=== PATIENT | female | born 1950 | race Caucasian/White ===

== ENCOUNTER 2017-08-13 08:10 | Outpatient (CLI) | payer MEDICARE | END 2017-08-13 08:11 | disposition home or self-care (01) | LOC: BICMAMMO 08:10 | PROVIDERS: ATTEND Family Medicine | DX: Z12.31 Encounter for screening mammogram for malignant neoplasm of breast (principal); Z78.0 Asymptomatic menopausal state; Z00.00 Encounter for general adult medical examination without abnormal findings; M85.859 Other specified disorders of bone density and structure, unspecified thigh; N63.10 Unspecified lump in the right breast, unspecified quadrant | CPT/HCPCS: 77063; 77067; 77080 ==

== ENCOUNTER 2019-05-02 09:11 | Outpatient (CLI) | payer MEDICARE ==
--- NOTE | 2019-05-02 11:01 | MMO ---
Bilateral MAMMO Bilat Screen DDI+DAT. CLINICAL HISTORY: Patient is 69 years old and is seen for screening. The patient has no family history of breast cancer. The patient has no personal history of cancer. The patient has a history of bilateral Implants at age 23 - benign. VIEWS: The views performed were: bilateral craniocaudal with tomosynthesis and bilateral mediolateral oblique with tomosynthesis. FILMS COMPARED: The present examination has been compared to prior imaging studies performed at [facility] on 08/13/2017, and at [facility] on 01/02/2011, 01/08/2012 and 07/07/2014. This study has been interpreted with the assistance of computer-aided detection. MAMMOGRAM FINDINGS: The breasts are heterogeneously dense, which could obscure a lesion on mammography. There are stable calcified implants seen in both breasts. Innumerable stable nodular densities are present throughout both breasts. There are no suspicious masses, suspicious calcifications, or new areas of architectural distortion. IMPRESSION: THERE IS NO MAMMOGRAPHIC EVIDENCE OF MALIGNANCY. A ROUTINE FOLLOW-UP MAMMOGRAM IN 1 YEAR IS RECOMMENDED. THE RESULTS OF THIS EXAM WERE SENT TO THE PATIENT. ACR BI-RADS Category 2 - Benign finding MAMMOGRAPHY NOTE: 1. A negative mammogram report should not delay a biopsy if a dominant of clinically suspicious mass is present. 2. Approximately 10% to 15% of breast cancers are not detected by mammography. 3. Adenosis and dense breasts may obscure an underlying neoplasm. Reported by: TURNER TERRELL MD Electonically Signed: [id number]
== END 2019-05-02 09:12 | disposition home or self-care (01) ==
LOC: BICMAMMO 09:11
PROVIDERS: ATTEND Family Medicine
DX: Z12.31 Encounter for screening mammogram for malignant neoplasm of breast (principal); Z98.82 Breast implant status
CPT/HCPCS: 77063; 77067

== ENCOUNTER 2019-11-04 07:59 | Outpatient (CLI) | payer MEDICARE ==
--- NOTE | 2019-11-04 09:32 | BD ---
DEXA SCAN: INDICATION: Postmenopausal osteoporosis screening evaluation. COMPARISON: Prior exam dated 01/02/2011. FINDINGS: Lumbar Spine: BMD (g/cm2) L1 0.890 T-Score: -0.9 Z-Score: 1.0 L2 0.914 T-Score: -1.0 Z-Score: 1.1 L3 0.895 T-Score: -1.7 Z-Score: 0.6 L4 0.859 T-Score: -1.8 Z-Score: 0.5 L1-L4 0.889 T-Score: -1.4 Z-Score: 0.8 Femoral Neck: 0.698 T-Score: -1.4 Z-Score: 0.5 Total Femur: 0.863 T-Score: -0.6 Z-Score: 0.9 Bone mineral density has improved 5.7% from the baseline; however, dissimilar scan types and analysis methods were utilized for the prior exam. The FRAX-WHO fracture risk assessment tool estimates the 10-year fracture risk for this patient for a major osteoporotic fracture as 9.6% and for a hip fracture as 1.4%. Impression: Based on WHO criteria, the patient is osteopenic. The patient is at moderate risk for fracture. POS: BH
== END 2019-11-04 08:00 | disposition home or self-care (01) ==
LOC: BICMAMMO 07:59
PROVIDERS: ATTEND Family Medicine
DX: Z13.820 Encounter for screening for osteoporosis (principal); Z78.0 Asymptomatic menopausal state; M85.89 Other specified disorders of bone density and structure, multiple sites
CPT/HCPCS: 77080

== ENCOUNTER 2020-10-22 09:58 | Outpatient (CLI) | payer MEDICARE | END 2020-10-22 09:59 | disposition home or self-care (01) | LOC: BICRAD 09:58 | PROVIDERS: ATTEND Family Medicine | DX: M54.9 Dorsalgia, unspecified (principal); M47.816 Spondylosis without myelopathy or radiculopathy, lumbar region | CPT/HCPCS: 72100 ==

== ENCOUNTER 2022-06-27 09:56 | Outpatient (CLI) | payer MEDICARE | END 2022-06-27 09:57 | disposition home or self-care (01) | LOC: BICMAMMO 09:56 | PROVIDERS: ATTEND Family Medicine | DX: Z13.820 Encounter for screening for osteoporosis (principal); Z78.0 Asymptomatic menopausal state; M85.89 Other specified disorders of bone density and structure, multiple sites | CPT/HCPCS: 77080 ==

== ENCOUNTER 2024-02-28 13:02 | Outpatient (CLI) | payer MEDICARE | END 2024-02-28 13:03 | disposition home or self-care (01) | LOC: MRI 13:02 | PROVIDERS: ATTEND Family Medicine | DX: M47.26 Other spondylosis with radiculopathy, lumbar region (principal); M51.16 Intervertebral disc disorders with radiculopathy, lumbar region; M48.061 Spinal stenosis, lumbar region without neurogenic claudication; M51.35 Other intervertebral disc degeneration, thoracolumbar region; M25.78 Osteophyte, vertebrae; M47.815 Spondylosis without myelopathy or radiculopathy, thoracolumbar region; M48.05 Spinal stenosis, thoracolumbar region; M51.379 Other intervertebral disc degeneration, lumbosacral region without mention of lumbar back pain or lower extremity pain; M48.07 Spinal stenosis, lumbosacral region; M47.817 Spondylosis without myelopathy or radiculopathy, lumbosacral region | CPT/HCPCS: 72148 ==